=== PATIENT | male | born 1970 | race Caucasian/White ===

== ENCOUNTER 2020-04-12 14:18 | Outpatient (REF) | payer OTHER, SELFPAY ==
--- NOTE | 2020-04-12 | US_ITS ---
EXAMINATION: US VENOUS ULTRASOUND WITH DOPPLER LOWER EXTREMITY, RIGHT CLINICAL INFORMATION: Swelling right lower extremity. Assess for occult DVT. COMPARISON: Right lower extremity venous ultrasound with Doppler 09/29/2019 TECHNIQUE: Ultrasound of the deep veins is performed from the hip to the calf with compression sonography and color and pulse Doppler assessment. Spectral analysis with color-flow imaging is performed. FINDINGS: There is normal venous compression and respiratory variation and augmented flow. The visualized common femoral vein, superficial femoral vein, profunda femoral vein, popliteal vein, and the trifurcation region shows no evidence of deep venous thrombosis. There is a popliteal fossa cyst measuring 1.3 x 4.2 x 5.3 cm. No edema tracking in soft tissue planes. US/US venous duplex LE RT IMPRESSION: 1. No DVT demonstrated in the right lower extremity. 2. Popliteal fossa cyst 1.3 x 4.2 x 5.3 cm.
== END 2020-04-12 14:19 | disposition home or self-care (01) ==
LOC: HO.HMGCX 14:18
PROVIDERS: PCP Internal Medicine; Visit Provider Emergency Medicine
DX: M25.461 Effusion, right knee (principal)
CPT/HCPCS: 93971

== ENCOUNTER 2020-04-20 11:29 | Outpatient (REF) | payer OTHER, SELFPAY ==
--- NOTE | 2020-04-20 11:55 | XR_ITS ---
EXAMINATION: XR KNEE, BILATERAL XR KNEE, RIGHT XR KNEE, LEFT CLINICAL INFORMATION: Bilateral posttraumatic osteoarthritis of the knees COMPARISON: 11/03/2019 TECHNIQUE: AP standing view of both knees. Lateral and sunrise views of both knees. FINDINGS: Right knee: No fracture or subluxation. Moderate medial compartment joint space narrowing. Severe narrowing of the patellofemoral compartment at the lateral aspect with [id number] appearance. There are prominent tricompartmental marginal osteophytes. These findings are similar to prior. Small joint effusion is suspected. Left knee: No fracture or subluxation. Moderate medial compartment joint space narrowing. Moderate narrowing of the patellofemoral compartment laterally. Prominent tricompartmental marginal osteophytes. No significant joint effusion. XR/XR knee LT 2V IMPRESSION: Advanced tricompartmental degenerative changes of both knees, similar to the previous study.
--- NOTE | 2020-04-20 11:55 | XR_ITS ---
EXAMINATION: XR KNEE, BILATERAL XR KNEE, RIGHT XR KNEE, LEFT CLINICAL INFORMATION: Bilateral posttraumatic osteoarthritis of the knees COMPARISON: 11/03/2019 TECHNIQUE: AP standing view of both knees. Lateral and sunrise views of both knees. FINDINGS: Right knee: No fracture or subluxation. Moderate medial compartment joint space narrowing. Severe narrowing of the patellofemoral compartment at the lateral aspect with [id number] appearance. There are prominent tricompartmental marginal osteophytes. These findings are similar to prior. Small joint effusion is suspected. Left knee: No fracture or subluxation. Moderate medial compartment joint space narrowing. Moderate narrowing of the patellofemoral compartment laterally. Prominent tricompartmental marginal osteophytes. No significant joint effusion. XR/XR knee standing BI IMPRESSION: Advanced tricompartmental degenerative changes of both knees, similar to the previous study.
--- NOTE | 2020-04-20 11:55 | XR_ITS ---
EXAMINATION: XR KNEE, BILATERAL XR KNEE, RIGHT XR KNEE, LEFT CLINICAL INFORMATION: Bilateral posttraumatic osteoarthritis of the knees COMPARISON: 11/03/2019 TECHNIQUE: AP standing view of both knees. Lateral and sunrise views of both knees. FINDINGS: Right knee: No fracture or subluxation. Moderate medial compartment joint space narrowing. Severe narrowing of the patellofemoral compartment at the lateral aspect with [id number] appearance. There are prominent tricompartmental marginal osteophytes. These findings are similar to prior. Small joint effusion is suspected. Left knee: No fracture or subluxation. Moderate medial compartment joint space narrowing. Moderate narrowing of the patellofemoral compartment laterally. Prominent tricompartmental marginal osteophytes. No significant joint effusion. XR/XR knee RT 2V IMPRESSION: Advanced tricompartmental degenerative changes of both knees, similar to the previous study.
== END 2020-04-20 11:30 | disposition home or self-care (01) ==
LOC: HO.HOSX 11:29
PROVIDERS: PCP Internal Medicine; Referring Provider Internal Medicine; Visit Provider Physician Assistant
DX: M17.2 Bilateral post-traumatic osteoarthritis of knee (principal); F17.210 Nicotine dependence, cigarettes, uncomplicated
CPT/HCPCS: 20610; 73560; 73565; J1040

== ENCOUNTER → 2020-04-30 12:20 | Outpatient (BNVA) | payer OTHER, SELFPAY | PROVIDERS: Visit Provider Physician Assistant | DX: M17.12 Unilateral primary osteoarthritis, left knee (principal); E11.9 Type 2 diabetes mellitus without complications | CPT/HCPCS: 20610 ==